=== PATIENT | male | born 1950 | race Hispanic/Latino ===

== ENCOUNTER → 2018-02-22 | Outpatient (CLI) | payer OTHER ==
[~2018-02-22] MED LIST: [UNRECOGNIZED DRUG - OTHER] PO
== END | disposition home or self-care (01) ==
LOC: RAH 12:58
PROVIDERS: ATTEND Internal Medicine
DX: E11.21 Type 2 diabetes mellitus with diabetic nephropathy (principal)
CPT/HCPCS: 93922

== ENCOUNTER 2018-10-29 16:40 | Observation (INO) | payer OTHER ==
[~2018-10-29] VITALS: Ht 172.7 cm; Wt 113.3 kg
[2018-10-29 17:23] LABS: BASOPHILS % (AUTO) 0.3 % (0.0-5.0); EOSINOPHILS % (AUTO) 1.4 % (0.0-8.0); HEMATOCRIT 35.8 % (42-54); LYMPHOCYTES % (AUTO) 15.8 % (21.0-51.0); MEAN CORPUSCULAR HEMOGLOBIN 30.7 pg (27.0-33.0); MEAN CORPUSCULAR HGB CONC 33.5 g/dL (32.0-36.0); MEAN CORPUSCULAR VOLUME 91.7 fL (79-99); MONOCYTES % (AUTO) 11.3 % (3.0-13.0); NEUTROPHILS % (AUTO) 71.2 % (40.0-77.0); NUCLEATED RED BLOOD CELLS 0.1 % (0.0-0.19); PLATELET COUNT (AUTO) 238 K/uL (130-400); RED CELL DISTRIBUTION WIDTH 13.8 % (11.0-15.5); WHITE BLOOD COUNT (AUTO) 9.8 K/uL (4.8-10.8)
[2018-10-29 17:31] LABS: INR 0.95 (0.85-1.15); PARTIAL THROMBOPLASTIN TIME 26.1 SEC (26.3-35.5)
[2018-10-29 17:35] LABS: CREATININE 2.1 mg/dL (0.5-1.5); POTASSIUM 4.8 mmol/L (3.5-5.1)
[2018-10-29 17:37] LABS: ALBUMIN 3.3 g/dL (3.5-5.0); BILIRUBIN,TOTAL 0.4 mg/dL (0.2-1.0); TOTAL PROTEIN, SERUM 6.9 g/dL (6.0-8.3)
[2018-10-29 19:32] LABS: APPEARANCE,URINE CLEAR (CLEAR); BILIRUBIN,URINE NEGATIVE (NEGATIVE); COLOR,URINE YELLOW (YELLOW); GLUCOSE, URINE (UA) NEGATIVE (NEGATIVE); KETONES,URINE NEGATIVE (NEGATIVE); LEUKOCYTE ESTERASE ,URINE NEGATIVE (NEGATIVE); NITRATE,URINE NEGATIVE (NEGATIVE); OCCULT BLOOD,URINE NEGATIVE (NEGATIVE); PH,URINE 5.5 (5.0-8.0); PROTEIN,URINE 30 mg/dL (NEGATIVE); UROBILINOGEN,URINE 0.2 mg/dL (0.2-1.0)
[2018-10-29 19:45] LABS: BACTERIA,URINE Rare /HPF (None Seen); RBC,URINE 0-1 /HPF (0-1); SQUAMOUS EPITHELIAL CELL,UR Rare /HPF (0-2); URIC ACID CRYSTALS,URINE Rare /LPF (None Seen); WBC,URINE 0-1 /HPF (0-1)
[2018-10-29] MEDS ORDERED: SODIUM CHLORIDE 0.9% 50 ML IV ONE (20:17)
[2018-10-29] MEDS ORDERED: CEFTRIAXONE SODIUM 1 GM ONE (20:17)
[2018-10-29] MEDS ORDERED: ACETAMINOPHEN 325 MG TAB PO PRN (20:45)
[2018-10-29] MEDS ORDERED: GLUCAGON 1MG KIT 1 MG ML IM PRN (20:45)
[2018-10-29] MEDS ORDERED: DEXTROSE 50%-WATER 50 ML DISP.SYRIN IV PRN (20:45)
[2018-10-29] MEDS: INSULIN R PO SS1 SQ SCH (21:00)
[2018-10-29 21:55] VITALS: BP 152/90
[2018-10-29] MEDS: HYDROMORPHONE 1 MG/1 ML AMP IVP PRN (22:57)
[2018-10-29] MEDS ORDERED: OLME40TA18 PO (23:15)
[2018-10-29] MEDS ORDERED: PRAV40TA3 PO (23:15)
[2018-10-29] MEDS ORDERED: FENO145T37 PO (23:15)
[2018-10-29] MEDS ORDERED: AMLO5TAB9 PO (23:15)
[2018-10-29] MEDS ORDERED: METO-409 PO (23:15)
[2018-10-30] VITALS: BP 141/77
[2018-10-30] MEDS: HYDROMORPHONE 1 MG/1 ML AMP IVP PRN ×2 (03:12→08:24)
[2018-10-30 04:00] VITALS: BP 135/68
[2018-10-30 04:49] LABS: HEMATOCRIT 31.4 % (42-54); MEAN CORPUSCULAR HEMOGLOBIN 30.6 pg (27.0-33.0); MEAN CORPUSCULAR HGB CONC 33.5 g/dL (32.0-36.0); MEAN CORPUSCULAR VOLUME 91.4 fL (79-99); NUCLEATED RED BLOOD CELLS 0.1 % (0.0-0.19); PLATELET COUNT (AUTO) 227 K/uL (130-400); RED BLOOD CELL COUNT(AUTO) 3.44 MIL/uL (4.50-6.20); RED CELL DISTRIBUTION WIDTH 13.9 % (11.0-15.5); WHITE BLOOD COUNT (AUTO) 8.9 K/uL (4.8-10.8)
[2018-10-30 05:14] LABS: ALBUMIN 2.8 g/dL (3.5-5.0); BILIRUBIN,TOTAL 0.3 mg/dL (0.2-1.0); CREATININE 2.1 mg/dL (0.5-1.5); POTASSIUM 4.7 mmol/L (3.5-5.1); TOTAL PROTEIN, SERUM 6.2 g/dL (6.0-8.3)
[2018-10-30] MEDS: INSULIN R PO SS1 SQ SCH ×4 (07:30→21:09)
[2018-10-30] MEDS ORDERED: METHYLPREDNISOLONE SOD SUCC 125MG/2ML VIAL IVP SCH (07:45)
[2018-10-30 08:00] VITALS: BP 139/80
[2018-10-30] MEDS: ENOXAPARIN SODIUM 40 MG/0.4 ML SYRINGE SQ SCH (08:23)
[2018-10-30] MEDS: AMLODIPINE BESYLATE 5 MG TAB PO SCH (08:23)
[2018-10-30] MEDS: FENOFIBRATE NANOCRYSTALLIZED 145 MG TAB PO SCH (08:23)
[2018-10-30] MEDS: ***HM***Metoprolol Succinate 100 MG PO SCH (08:25)
[2018-10-30] MEDS: OLMESARTAN MEDOXOMIL 40 MG PO SCH (08:26)
[2018-10-30] MEDS: ***HM***Pravastatin Sodium 40 MG PO SCH (08:26)
[2018-10-30 12:00] VITALS: BP 136/76
[2018-10-30 16:00] VITALS: BP 146/76
--- NOTE | 2018-10-30 16:02 | NUR ---
INITIAL: Met w pt and spouse this afternoon to discuss dcp. Pt states that he lives w spouse and 2sons. prior to admission was independent w ambulation and ADLs. He has a walker avail if needed. Per pt he feels safe and comfortable to [place]. He mentions that he is not willing to consider SNF even if Md recommends. CM to continue to follow and wait for Md recommendations. Addendum: 10/30/18 at 1604 by MELA OBRIEN Amended: Links added.
[2018-10-30 19:00] VITALS: BP 145/78
[2018-10-30] MEDS ORDERED: CEFTRIAXONE SODIUM 1 GM IVP SCH (20:00)
[2018-10-31] VITALS: BP 131/64
[2018-10-31 04:00] VITALS: BP 128/77
[2018-10-31] MEDS: INSULIN R PO SS1 SQ SCH ×2 (05:54→11:30)
[2018-10-31 08:00] VITALS: BP 142/75
[2018-10-31] MEDS: OLMESARTAN MEDOXOMIL 40 MG PO SCH (09:00)
[2018-10-31] MEDS: ENOXAPARIN SODIUM 40 MG/0.4 ML SYRINGE SQ SCH (09:00)
[2018-10-31] MEDS: ***HM***Pravastatin Sodium 40 MG PO SCH (09:00)
[2018-10-31] MEDS: FENOFIBRATE NANOCRYSTALLIZED 145 MG TAB PO SCH (09:00)
[2018-10-31] MEDS: AMLODIPINE BESYLATE 5 MG TAB PO SCH (09:00)
[2018-10-31] MEDS: ***HM***Metoprolol Succinate 100 MG PO SCH (09:00)
== END 2018-10-31 12:54 | disposition home or self-care (01) ==
LOC: EDH 16:40 → INTOOBSV 20:19 → EDHIP 20:19 → OBSVTOIN 20:19 → 3AH 22:06
PROVIDERS: ADMIT Internal Medicine; ATTEND Internal Medicine
DX: L03.115 Cellulitis of right lower limb (principal); M10.9 Gout, unspecified; M06.4 Inflammatory polyarthropathy; E11.22 Type 2 diabetes mellitus with diabetic chronic kidney disease; M79.661 Pain in right lower leg; I12.9 Hypertensive chronic kidney disease with stage 1 through stage 4 chronic kidney disease, or unspecified chronic kidney disease; N18.9 Chronic kidney disease, unspecified; E78.5 Hyperlipidemia, unspecified; K76.0 Fatty (change of) liver, not elsewhere classified; Z87.442 Personal history of urinary calculi; Z79.899 Other long term (current) drug therapy
CPT/HCPCS: 36415 ×2; 71045; 73610; 80053 ×2; 81001; 82150; 82550; 82948 ×6; 83690; 84484; 85025; 85027; 85610; 85651; 85730; 87040 ×2; 93005; 93971; 96372; 96374; 96375; 96376; 99284; G0378 ×41; J0696 ×2; J1170 ×2; J1650; J1815; J2930

== ENCOUNTER → 2019-06-23 | Outpatient (CLI) | payer OTHER ==
[~2019-06-23] MED LIST changes: +AMLO5TAB9 PO; +FENO145T26 PO; +METO-409 PO; +OLME40TA18 PO; +PRAV40TA3 PO
== END | disposition home or self-care (01) ==
LOC: OIH 09:53
PROVIDERS: ATTEND Family Medicine
DX: M16.0 Bilateral primary osteoarthritis of hip (principal); M47.814 Spondylosis without myelopathy or radiculopathy, thoracic region; M43.8X6 Other specified deforming dorsopathies, lumbar region; M47.816 Spondylosis without myelopathy or radiculopathy, lumbar region; M48.07 Spinal stenosis, lumbosacral region; I51.7 Cardiomegaly; I10 Essential (primary) hypertension
CPT/HCPCS: 71046; 72100; 73521

== ENCOUNTER → 2023-08-19 | Outpatient (CLI) | payer OTHER ==
[~2023-08-19] MED LIST changes: +AMLO-257 PO; -AMLO5TAB9 PO
== END | disposition home or self-care (01) ==
LOC: RAH 13:28
PROVIDERS: ATTEND Family Medicine
DX: N28.1 Cyst of kidney, acquired (principal); N20.0 Calculus of kidney; R10.30 Lower abdominal pain, unspecified
CPT/HCPCS: 76770